=== PATIENT | female | born 1965 | race Caucasian/White ===

== ENCOUNTER 2023-11-12 13:00 | Outpatient (CLI) | payer OTHER ==
--- NOTE | 2023-11-12 16:53 | XRAY Report ---
PROCEDURE: Wrist 3+V RT INDICATIONS: PAIN IN RIGHT WRIST TECHNIQUE: 3 views of the wrist were acquired. COMPARISON: X-ray right forearm, 11/12/2023. FINDINGS: Bones: There is a comminuted intra-articular fracture of the distal radial metaphysis with impaction and displacement. No suspicious bony lesions. Soft tissues: No suspicious soft tissue calcifications or masses. Soft tissue swelling. IMPRESSION: Comminuted distal radial fracture. Reviewed by: Benson Valladares MD on 11/12/2023 4:52 PM PDT Approved by: Benson Valladares MD on 11/12/2023 4:52 PM PDT Station ID: [id number]
--- NOTE | 2023-11-12 16:56 | XRAY Report ---
PROCEDURE: Forearm RT INDICATIONS: LOCALIZED SWELLING OF FOREARM, RIGHT TECHNIQUE: 2 views of the forearm were acquired. COMPARISON: X-ray right wrist, 11/12/2023. FINDINGS: Bones: There is a comminuted intra-articular distal radial metaphyseal fracture with impaction, angul ation and displacement. No suspicious bony lesions. Soft tissues: No suspicious soft tissue calcifications or masses. There is mass in the proximal rig ht forearm, most likely a hematoma. IMPRESSION: 1. Distal radial metaphyseal fracture. 2. A mass in the proximal forearm, most likely a hematoma. Recommend clinical correlation and follow- up. Reviewed by: Benson Valladares MD on 11/12/2023 4:55 PM PDT Approved by: Benson Valladares MD on 11/12/2023 4:55 PM PDT Station ID: [id number]
== END 2023-11-12 13:15 | disposition home or self-care (01) ==
LOC: DI.N 13:00
PROVIDERS: ATTEND Physician Assistant Medical
DX: S52.501A Unspecified fracture of the lower end of right radius, initial encounter for closed fracture (principal); R93.6 Abnormal findings on diagnostic imaging of limbs; R93.89 Abnormal findings on diagnostic imaging of other specified body structures